=== PATIENT | female | born 1950 | race American Indian/Alaskan Native ===

== ENCOUNTER 2018-01-18 19:33 | Emergency (ER) | payer BC, MEDICARE ==
[2018-01-18 19:49] VITALS: BP 169/76
[2018-01-18 20:30] LABS: Bilirubin,Urine NEG (Negative); Blood,Urine MOD (Negative); Color,Urine Blue (Yellow); Mucus,Urine FEW /HPF; Protein,Urine <15 mg/dL mg/dL (Negative); Urobilinogen,Urine < 2.0 mg/dL (<2.0)
--- NOTE | 2018-01-18 21:51 | Emergency Department Report ---
ED Female HPI - General Chief complaint: Urogenital-Female Stated complaint: VAGINAL PAIN Time Seen by Provider: 01/18/18 20:51 Source: patient Mode of arrival: Ambulatory Limitations: No Limitations - History of Present Illness Initial comments: 67-year-old [place] female reports to the emergency room of having pelvic pain 8 out of 10 [address] she [address]. Patient states that this happens to her every time she goes on vacation and does a lot of walking and using soap in the bathrooms on vacation. Patient reports that she has been urinating a lot and the pain is not on the outside of her vaginal. But to do with the bone rubbing inside her vaginal. Patient denies any nausea vomiting no fever no chills no abdominal pain or pelvic pain. She admits to urgency frequency. She reports that she had this last in July 2017. She denies any dysuria no vaginal discharge. -: days(s) (3) Location: perineum Severity: severe Severity scale (0 -10): 8 Quality: aching Consistency: constant Worsens with: movement Are you Now?: No Associated Symptoms: denies other symptoms - Related Data Sexually active: Yes Home Medications Medication Instructions Recorded Confirmed Last Taken Lisinopril/Hydrochlorothiazide 1 tab PO QDAY 04/23/13 06/28/15 06/28/15 [Zestoretic 20-25 mg] Atenolol [Tenormin] 25 mg PO DAILY 10/28/14 06/28/15 06/28/15 Previous Rx's Medication Instructions Recorded Last Taken Type Acetaminophen/Codeine [Tylenol #3] 1 tab PO Q6H PRN #21 tab 06/25/15 06/28/15 Rx methOCARBAMOL [Robaxin TAB] 500 mg PO BID #20 tab 06/25/15 06/28/15 Rx HYDROcodone/APAP 7.5-325 [[place] 7.5 mg PO Q6HR PRN #10 oral.liqd 06/29/15 Unknown Rx 7.5-325 mg per 15 ML] Ibuprofen [Motrin 800 MG tab] 800 mg PO Q8HR PRN #30 tablet 06/29/15 Unknown Rx Nitrofurantoin Monohyd/M-Cryst 100 mg PO Q12H #14 capsule 01/18/18 Unknown Rx [Macrobid 100 mg Capsule] Allergies Allergy/AdvReac Type Severity Reaction Status Date / Time No Known Allergies Allergy Verified 10/28/14 17:17 ED Review of Systems ROS: Stated complaint: VAGINAL PAIN Other details as noted in HPI Comment: All other systems reviewed and negative ED Past Medical Hx - Past Medical History Previous Medical History?: Yes Hx Hypertension: Yes Hx Asthma: Yes - Surgical History Past Surgical History?: Yes Additional Surgical History: hysterectomy - Social History Smoking Status: Never Smoker - Medications Home Medications: Home Medications Medication Instructions Recorded Confirmed Last Taken Type Lisinopril/Hydrochlorothiazide 1 tab PO QDAY 04/23/13 06/28/15 06/28/15 History [Zestoretic 20-25 mg] Atenolol [Tenormin] 25 mg PO DAILY 10/28/14 06/28/15 06/28/15 History Acetaminophen/Codeine [Tylenol #3] 1 tab PO Q6H PRN #21 tab 06/25/15 06/28/15 Rx methOCARBAMOL [Robaxin TAB] 500 mg PO BID #20 tab 06/25/15 06/28/15 06/28/15 Rx HYDROcodone/APAP 7.5-325 [[place] 7.5 mg PO Q6HR PRN #10 oral.liqd 06/29/15 Unknown Rx 7.5-325 mg per 15 ML] Ibuprofen [Motrin 800 MG tab] 800 mg PO Q8HR PRN #30 tablet 06/29/15 Unknown Rx Nitrofurantoin Monohyd/M-Cryst 100 mg PO Q12H #14 capsule 01/18/18 Unknown Rx [Macrobid 100 mg Capsule] ED Physical Exam - General Limitations: No Limitations General appearance: alert, in no apparent distress - Head Head exam: Present: atraumatic, normocephalic - Eye Eye exam: Present: EOMI - ENT ENT exam: Present: mucous membranes moist - Respiratory Respiratory exam: Present: normal lung sounds bilaterally. Absent: respiratory distress - Cardiovascular Cardiovascular Exam: Present: regular rate, normal rhythm. Absent: systolic murmur, diastolic murmur, rubs, gallop - GI/Abdominal GI/Abdominal exam: Present: soft, normal bowel sounds. Absent: tenderness - Extremities Exam Extremities exam: Present: normal inspection - Neurological Exam Neurological exam: Present: alert, oriented X3 - Psychiatric Psychiatric exam: Present: normal affect, normal mood - Skin Skin exam: Present: warm, dry, intact, normal color. Absent: rash ED Course Vital Signs 01/18/18 01/18/18 19:41 19:58 Temperature 98.5 F 98.5 F Pulse Rate 84 89 Respiratory 18 18 Rate Blood Pressure 169/76 169/76 O2 Sat by Pulse 97 99 Oximetry ED Medical Decision Making - Medical Decision Making Patient has been evaluated by this provider fast track. Labs such as urinalysis shows a patient who has moderate moderate esterase and WBCs and moderate amount of blood. We'll treat patient for urinary tract infection and have her follow up with Dr. Shepard which she reports appointment on the . Critical care attestation.: If time is entered above; I have spent that time in minutes in the direct care of this critically ill patient, excluding procedure time. ED Disposition Clinical Impression: UTI (urinary tract infection) Qualifiers: Urinary tract infection type: acute cystitis Hematuria presence: with hematuria Qualified Code(s): N30.01 - Acute cystitis with hematuria Disposition: TO HOME OR SELFCARE Is pt being admited?: No Does the pt Need Aspirin: No Condition: Stable Instructions: Urinary Tract Infection in Women (ED) Additional Instructions: Complete antibiotics as prescribed. Increase her fluid intake by 2 L a day. Keep your appointment with her primary care provider. Prescriptions: Nitrofurantoin Monohyd/M-Cryst [Macrobid 100 mg Capsule] 100 mg PO Q12H #14 capsule Referrals: PRIMARY CAREMD [Primary Care Provider] - 3-5 Days Zoraida leger [Other] - 3-5 Days Forms: Work/School Release Form(ED)
== END 2018-01-18 22:05 | disposition home or self-care (01) ==
LOC: ED 19:33
DX: N30.01 Acute cystitis with hematuria (principal); I10 Essential (primary) hypertension; J45.909 Unspecified asthma, uncomplicated; Z90.710 Acquired absence of both cervix and uterus; Z79.899 Other long term (current) drug therapy
CPT/HCPCS: 81001; 99283

== ENCOUNTER 2019-08-04 07:58 | Observation (INO) | payer BC, MEDICARE ==
[2019-08-04] MEDS ORDERED: ASPIRIN 325 MG TAB PO ONE (08:04)
--- NOTE | 2019-08-04 08:41 | Emergency Department Report ---
ED Chest Pain HPI - General Chief Complaint: Chest Pain Stated Complaint: CHEST PAIN, ASTHMA Time Seen by Provider: 08/04/19 08:28 Source: patient Mode of arrival: Ambulatory Limitations: No Limitations - History of Present Illness Initial Comments: Patient is 69 years old female with history of hypertension and asthma. Patient presented to the ER complaining of chest pain, substernal radiated to both upper extremities and to her neck. Patient stated that pain started last night. Patient is also complaining of shortness of breath and cough. Patient denied any fever or chills. No nausea or vomiting. No lower extremity swelling. MD Complaint: chest pain -: Last night Onset: during rest Pain Location: substernal Pain Radiation: RUE, LUE Severity: moderate Severity scale (0 -10): 4 Quality: heaviness, pressure Consistency: constant - Related Data Home Medications Medication Instructions Recorded Confirmed Last Taken Albuterol Sulfate [Proair 90 mcg IH QDAY PRN 08/04/19 08/04/19 Unknown Digihaler] Amlodipine Besylate [Norvasc] 5 mg PO QDAY 08/04/19 08/04/19 Unknown Loratadine [Allergy Relief] 10 mg PO QDAY 08/04/19 08/04/19 Unknown hydroCHLOROthiazide [HCTZ] 25 mg PO QDAY 08/04/19 08/04/19 Unknown lisinopriL [Zestril TAB] 40 mg PO QDAY 08/04/19 08/04/19 Unknown Allergies Allergy/AdvReac Type Severity Reaction Status Date / Time No Known Allergies Allergy Verified 10/28/14 17:17 Heart Score - HEART Score History: Moderately suspicious EKG: Non-specific Age: > 65 Risk factors: > 3 risk factors or hx of atherosclerotic disease Troponin: < normal limit HEART Score: 6 - Critical Actions Critical Actions: 4-6 pts:12-16.6% risk of adverse cardiac event. Should be admitted ED Review of Systems ROS: Stated complaint: CHEST PAIN, ASTHMA Other details as noted in HPI Comment: All other systems reviewed and negative Constitutional: denies: chills, fever Respiratory: cough, shortness of breath, SOB with exertion, SOB at rest. denies: wheezing Cardiovascular: chest pain Gastrointestinal: denies: abdominal pain, nausea, vomiting, diarrhea, constipation, hematemesis Musculoskeletal: denies: back pain Neurological: denies: headache, weakness, numbness, paresthesias ED Past Medical Hx - Past Medical History Previous Medical History?: Yes Hx Hypertension: Yes Hx Asthma: Yes - Surgical History Past Surgical History?: Yes Additional Surgical History: hysterectomy - Social History Smoking Status: Never Smoker Substance Use Type: None - Medications Home Medications: Home Medications Medication Instructions Recorded Confirmed Last Taken Type Albuterol Sulfate [Proair 90 mcg IH QDAY PRN 08/04/19 08/04/19 Unknown History Digihaler] Amlodipine Besylate [Norvasc] 5 mg PO QDAY 08/04/19 08/04/19 Unknown History Loratadine [Allergy Relief] 10 mg PO QDAY 08/04/19 08/04/19 Unknown History hydroCHLOROthiazide [HCTZ] 25 mg PO QDAY 08/04/19 08/04/19 Unknown History lisinopriL [Zestril TAB] 40 mg PO QDAY 08/04/19 08/04/19 Unknown History ED Physical Exam - General Limitations: No Limitations General appearance: alert, in no apparent distress - Head Head exam: Present: atraumatic, normocephalic, normal inspection - Eye Eye exam: Present: normal appearance - ENT ENT exam: Present: normal exam, normal orophraynx, mucous membranes moist - Neck Neck exam: Present: normal inspection, full ROM. Absent: tenderness, m eningismus, lymphadenopathy, thyromegaly - Respiratory Respiratory exam: Present: normal lung sounds bilaterally - Cardiovascular Cardiovascular Exam: Present: regular rate, normal rhythm, normal heart sounds - GI/Abdominal GI/Abdominal exam: Present: soft, normal bowel sounds. Absent: distended, tenderness, guarding, rebound, rigid, organomegaly, mass, bruit, pulsatile mass, hernia - Extremities Exam Extremities exam: Present: normal inspection, full ROM, normal capillary refill. Absent: pedal edema, calf tenderness - Back Exam Back exam: Present: normal inspection, full ROM. Absent: CVA tenderness (R), CVA tenderness (L) - Neurological Exam Neurological exam: Present: alert, oriented X3, CN II-XII intact, normal gait, reflexes normal. Absent: motor sensory deficit - Psychiatric Psychiatric exam: Present: normal mood - Skin Skin exam: Present: warm, intact, normal color ED Course Vital Signs 08/04/19 08/04/19 08/04/19 08:02 08:40 08:42 Temperature 98.3 F 98.4 F Pulse Rate 91 H 80 Respiratory 18 16 Rate Blood Pressure 175/82 Blood Pressure 134/72 [Left] O2 Sat by Pulse 98 98 98 Oximetry ED Medical Decision Making - Lab Data Result diagrams: 08/04/19 08:34 08/04/19 08:34 - EKG Data -: EKG Interpreted by [facility] EKG shows normal: sinus rhythm Rate: normal - EKG Data Interpretation: no acute changes - Radiology Data Radiology results: report reviewed - Medical Decision Making Patient is 69 years old female with history of hypertension and asthma. Patient presented to the ER complaining of chest pain, substernal radiated to both upper extremities and to her neck. Patient stated that pain started last night. Patient is also complaining of shortness of breath and cough. Patient denied any fever or chills. No nausea or vomiting. No lower extremity swelling. EKG showed no ST elevation. Labs reviewed and is unremarkable except for slightly elevated d-dimer for which CTA chest is negative for PE. I discussed t he patient with Dr. Rivera, he agreed to admit the patient to medical service for further management. Critical care attestation.: If time is entered above; I have spent that time in minutes in the direct care of this critically ill patient, excluding procedure time. ED Disposition Clinical Impression: Chest pain Disposition: - OP ADMIT IP TO THIS HOSP Is pt being admited?: Yes Condition: Stable Instructions: Chest Pain (ED)
--- NOTE | 2019-08-04 08:52 | XRay Report ---
CHEST 1 VIEW INDICATION: Chest Pain. COMPARISON: 06/02/2015. FINDINGS: Support devices: None. Heart: Within normal limits. Lungs/Pleura: No acute air space or interstitial disease. Additional findings: None. IMPRESSION: No acute abnormality. Signer Name: Raul Cadena MD Signed: 08/04/2019 8:48 AM Workstation Name: [id number]
[2019-08-04 09:29] LABS: Basophils % (Auto) 0.9 % (0.0-1.8); Eosinophils # (Auto) 0.2 K/mm3 (0.0-0.4); Eosinophils % (Auto) 4.8 % (0.0-4.3); Hematocrit 36.8 % (30.3-42.9); Hemoglobin 12.1 gm/dl (10.1-14.3); Lymphocytes # (Auto) 1.5 K/mm3 (1.2-5.4); Mean Corpuscular HGB Conc 33 % (30-34); Mean Corpuscular Volume 81 fl (79-97); Monocytes # (Auto) 0.3 K/mm3 (0.0-0.8); Monocytes % (Auto) 6.6 % (0.0-7.3); Platelet Count 152 K/mm3 (140-440); Red Blood Count 4.52 M/mm3 (3.65-5.03); Red Cell Distribution Width 15.4 % (13.2-15.2)
[2019-08-04] MEDS ORDERED: MORPHINE 4 MG/1 ML INJ IV ONE (09:44)
[2019-08-04] MEDS ORDERED: MORPHINE 2 MG/1 ML INJ ONE (09:44)
[2019-08-04] MEDS ORDERED: ONDANSETRON 4 MG/2 ML INJ IV ONE (09:44)
[2019-08-04] MEDS ORDERED: ONDANSETRON 4 MG/2 ML INJ ONE (09:44)
[2019-08-04 09:45] LABS: BUN/Creatinine Ratio 20; Blood Urea Nitrogen 18 mg/dL (7-17); Calcium 9.4 mg/dL (8.4-10.2); Hemolysis Index 5
[2019-08-04 09:50] LABS: Alanine Aminotransferase 19 units/L (7-56); Albumin 4.7 g/dL (3.9-5)
[2019-08-04 10:12] LABS: Bilirubin,Direct < 0.2 mg/dL (0-0.2)
--- NOTE | 2019-08-04 12:11 | Cat Scan Report ---
CTA CHEST WITH CONTRAST INDICATION : CHEST PAIN WITH SOB. TECHNIQUE: Axial imaging performed through the chest, with contrast bolus timing set to maximize opa cification of the pulmonary arteries. Sagittal and coronal reformatted images. 3-plane MIP reformatte d images were obtained. All CT scans at this location are performed using CT dose reduction for ALAR A by means of automated exposure control. 100 mL of intravenous contrast administered. COMPARISON: None FINDINGS: Bolus: Contrast bolus timing is adequate. PTE: No filling defect is present to suggest PTE. Mediastinum: Heart and great vessels appear normal. No pathologic mediastinal adenopathy. 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 Lungs: Lungs are clear. Bones: Degenerative changes in the spine with nothing acute. Upper abdomen: Limited imaging of the upper abdomen shows nothing acute. IMPRESSION: Negative for PTE. Clear lungs. Signer Name: Matias Chung Jr, MD Signed: 08/04/2019 12:06 PM Workstation Name: [id number]
--- NOTE | 2019-08-04 12:42 | History and Physical Report ---
History of Present Illness Chief complaint: My chest is been hurting History of present illness: 69 YO Female with HTN, Asthma presents to ED for evaluation. Patient states that she has experienced pain in her chest over the past 1 day with worsening symptoms over the past 6 hours. Patient states that her pain is currently 46/10, intermittent initially but has become more constant over the past 6 hours, substernal, crushing in nature, worsened with exertion, relieved with rest, associated with shortness of breath. Patient acknowledges dyspnea on exertion, dyspnea at rest, decreased exercise tolerance. Patient transported to [facility] via private vehicle for further evaluation and care. Patient seen and evaluated in the emergency department. Lab and imaging studies reviewed. Patient found to have symptoms and clinical findings consistent with angina as well as diastolic congestive heart failure, and upper extremity pain consistent with cervical radiculopathy. Patient placed in observation status and admitted to [facility] unit for further evaluation and care due to increased risk of decompensation. Patient denies fever, chills, palpitations, productive cough, unilateral leg swelling, prolonged travel/immobility, individual/family history of DVT/PE/bleeding/blood clotting disorders, or recent ill contacts. No prior admission for review. All medication listed at time of admission has been reconciled. Advanced care planning conducted in ED. Past History Past Medical History: hypertension, other (See HPI) Past Surgical History: hysterectomy Social history: . denies: smoking, alcohol abuse, prescription drug abuse Family history: hypertension Medications and Allergies Allergies Allergy/AdvReac Type Severity Reaction Status Date / Time No Known Allergies Allergy Verified 10/28/14 17:17 Home Medications Medication Instructions Recorded Confirmed Last Taken Type Albuterol Sulfate [Proair 90 mcg IH QDAY PRN 08/04/19 08/04/19 Unknown History Digihaler] Amlodipine Besylate [Norvasc] 5 mg PO QDAY 08/04/19 08/04/19 Unknown History Loratadine [Allergy Relief] 10 mg PO QDAY 08/04/19 08/04/19 Unknown History hydroCHLOROthiazide [HCTZ] 25 mg PO QDAY 08/04/19 08/04/19 Unknown History lisinopriL [Zestril TAB] 40 mg PO QDAY 08/04/19 08/04/19 Unknown History Review of Systems Constitutional: no weight loss, no weight gain, no fever, no chills Ears, nose, mouth and throat: no ear pain, no ear discharge, no decreased hearing, no nose pain Breasts: no change in shape, no swelling, no mass Cardiovascular: chest pain, shortness of breath, dyspnea on exertion, decreased exercise tolerance, no rapid/irregular heart beat, no syncope, no lightheadedness Exam - Constitutional Vitals: Temp Pulse Resp BP Pulse Ox 98.4 F 80 16 134/72 98 08/04/19 08:42 08/04/19 08:42 08/04/19 08:42 08/04/19 08:42 08/04/19 08:42 Results - Labs CBC & Chem 7: 08/04/19 08:34 08/04/19 08:34 Labs: Abnormal lab results 08/04/19 08/04/19 08/04/19 Range/Units 08:34 08:34 08:39 MCH 27 L (28-32) pg RDW 15.4 H (13.2-15.2) % Eos % (Auto) 4.8 H (0.0-4.3) % D-Dimer 256.38 H (0-234) ng/mlDDU Carbon Dioxide 21 L (22-30) mmol/L BUN 18 H (7-17) mg/dL Assessment and Plan - Patient Problems (1) Diastolic CHF Current Visit: Yes Status: Acute Qualifiers: Heart failure chronicity: acute Qualified Code(s): I50.31 - Acute diastolic (congestive) heart failure Plan to address problem: Strict I's/O, daily weight, blood pressure control, monitor urine output every shift, pulse oximetry, remote telemetry monitoring, echocardiogram, cardiology team consulted in ED. (2) Angina at rest Current Visit: Yes Status: Acute Plan to address problem: Serial cardiac enzymes, EKG, supplemental oxygen, morphine, nitro, aspirin, repeat physical exam, cardiology consulted in ED, further testing as per cardiology team.. (3) Radiculopathy Current Visit: Yes Status: Acute Plan to address problem: Cervical spine x-ray, supportive care. (4) DVT prophylaxis Current Visit: Yes Status: Acute Plan to address problem: SCD to bilateral lower extremities while in bed, patient is ambulatory. (5) Advance care planning Current Visit: Yes Status: Acute Plan to address problem: Patient is full code, disease education conducted at bedside, patient acknowledges understanding and agreement with care plan. Patient wishes to proceed with care plan. +30 minutes
[2019-08-04] MEDS ORDERED: ONDANSETRON 4 MG/2 ML INJ IV PRN (12:44)
[2019-08-04] MEDS ORDERED: ACETAMINOPHEN 325 MG TAB PO PRN (12:44)
[2019-08-04 13:59] LABS: Chol/HDL Ratio 2.89 %
--- NOTE | 2019-08-04 16:47 | XRay Report ---
CERVICAL SPINE, 6 VIEWS INDICATION / CLINICAL INFORMATION: Radiculopathy. COMPARISON: 08/09/2012 FINDINGS: Mild multilevel degenerative disc disease is present. Posterior alignment is normal. Mild to moderate diffuse spondylitic changes noted throughout the spine. Overall appearance of the diffuse spondylyti c change is slightly worse compared to the 2013 exam. No evidence of compression fracture. Visualized lung apices are clear. IMPRESSION: 1. Mild multilevel degenerative disc disease with mild to moderate diffuse spondylytic change. The de gree of spondylitic change has progressed since prior radiographs of 08/09/2012. 2. No other significant finding. Signer Name: Jasmyne Carlin MD Signed: 08/04/2019 4:43 PM Workstation Name: [id number]
[2019-08-05] MEDS ORDERED: REGADENOSON 0.4 MG/5 ML INJ IV ONE ×2 (09:45→09:50)
[2019-08-05] MEDS ORDERED: hydroCHLOROthiazide 25 MG TAB PO SCH (10:00)
[2019-08-05] MEDS ORDERED: NON-FORMULARY EACH (Loratadine [Allergy Relief] 10 MG) PO SCH (10:00)
[2019-08-05] MEDS ORDERED: LISINOPRIL 40 MG TAB PO SCH (10:00)
[2019-08-05] MEDS ORDERED: amLODIPine 5 MG TAB PO SCH (10:00)
[2019-08-05] MEDS ORDERED: CETIRIZINE 10 MG TAB PO SCH (10:00)
--- NOTE | 2019-08-05 10:35 | Consultation ---
History of Present Illness Consult date: 08/05/19 Consult reason: chest pain, congestive heart failure History of present illness: 69-year old woman who presented to the emergency department with complaints of chest pain. Patient associates chest pain with shortness of breath and right upper extremity pain. Noted a systolic blood pressure of 175 on initial workup. There is no history of coronary artery disease and she had no recent cardiac evaluation. A chest xray is negative and a chest CTA scan reports no PE. Cycled iso-enzymes are normal and her ECG is benign, normal sinus rhythm. Cardiac consultation has been requested for further evaluation and recommendations. Past History Past Medical History: hypertension, other (See HPI) Past Surgical History: hysterectomy Social history: . denies: smoking, alcohol abuse, prescription drug abuse Family history: hypertension Medications and Allergies Allergies Allergy/AdvReac Type Severity Reaction Status Date / Time No Known Allergies Allergy Verified 10/28/14 17:17 Home Medications Medication Instructions Recorded Confirmed Last Taken Type Albuterol Sulfate [Proair 90 mcg IH QDAY PRN 08/04/19 08/04/19 Unknown History Digihaler] Amlodipine Besylate [Norvasc] 5 mg PO QDAY 08/04/19 08/04/19 Unknown History Loratadine [Allergy Relief] 10 mg PO QDAY 08/04/19 08/04/19 Unknown History hydroCHLOROthiazide [HCTZ] 25 mg PO QDAY 08/04/19 08/04/19 Unknown History lisinopriL [Zestril TAB] 40 mg PO QDAY 08/04/19 08/04/19 Unknown History Active Meds: Active Medications Acetaminophen (Tylenol) 650 mg PO Q4H PRN PRN Reason: Pain MILD(1-3)/Fever >100.5/LEW Amlodipine Besylate (Amlodipine) 5 mg PO QDAY [facility] Last Admin: 08/05/19 08:59 Dose: Not Given Documented by: Cetirizine HCl (Cetirizine) 10 mg PO DAILY [facility] Last Admin: 08/05/19 08:59 Dose: 10 mg Documented by: Hydrochlorothiazide (Hctz) 25 mg PO QDAY [facility] Last Admin: 08/05/19 08:59 Dose: Not Given Documented by: Lisinopril (Zestril) 40 mg PO QDAY [facility] Last Admin: 08/05/19 08:59 Dose: Not Given Documented by: Ondansetron HCl (Zofran) 4 mg IV Q8H PRN PRN Reason: Nausea And Vomiting Sodium Chloride (Sodium Chloride Flush Syringe 10 Ml) 10 ml IV BID ALEX Last Admin: 08/05/19 09:00 Dose: 10 ml Documented by: Sodium Chloride (Sodium Chloride Flush Syringe 10 Ml) 10 ml IV PRN PRN PRN Reason: LINE FLUSH Physical Examination Vital Signs Temp Pulse Resp BP Pulse Ox 98.3 F 91 H 18 175/82 98 08/04/19 08:02 08/04/19 08:02 08/04/19 08:02 08/04/19 08:02 08/04/19 08:02 General appearance: no acute distress HEENT: Positive: PERRL Neck: Positive: trachea midline Cardiac: Positive: Reg Rate and Rhythm Lungs: Positive: Decreased Breath Sounds Results 08/04/19 08:34 08/04/19 08:34 Lipids 08/04/19 Range/Units 12:50 Triglycerides 70 (2-149) mg/dL Cholesterol 168 (50-199) mg/dL HDL Cholesterol 58 (40-59) mg/dL Cholesterol/HDL Ratio 2.89 % Assessment and Plan - Patient Problems (1) Chest pain Current Visit: Yes Status: Acute Plan to address problem: Chest pain negative troponins ECG- NSR chest CTA -no PE Plan: We will obtain an echocardiogram for LVEF assessment. Pre-discharge stress thallium test for ischemic cardiac evaluation.
--- NOTE | 2019-08-05 19:16 | Discharge Summary ---
Providers - Providers Date of Admission: 08/04/19 12:44 Date of discharge: 08/05/19 Attending physician: NATHAN ORDAZ 08/04/19 Consult to Cardiac Rehabilitation [CONS] Routine Reason For Exam: Phase I 08/04/19 12:45 Consult to Cardiology [CONS] Routine Consulting Provider: AUGUST CORDOBA Reason For Exam: chf/angina Primary care physician: TIN HUGGINS Hospitalization Condition: Stable Pertinent studies: Echocardiogram ejection fraction 60%. Negative stress thallium exam. X-ray of neck showed cervical osteophytes that has been worse since 2013. Hospital course: Patient 69-year-old without any significant past medical history presents with a chief complaint of chest pain association of shortness of breath and uncontrolled hypertension. Patient had extensive work-up cardiac isoenzymes negative. EKG unremarkable. Patient had normal stress test unremarkable echocardiogram was thought to be stable cardiology to be followed outpatient. Patient follow-up Ortho outpatient cervical neck pain secondary to degenerative joint disease. Disposition: - TO HOME OR SELFCARE - Discharge Diagnoses (1) Chest pain Status: Acute Comment: Thought to be secondary to gastritis versus costochondritis. Atypical chest pain. Work-up negative. (2) Radiculopathy Status: Acute Comment: Secondary to degenerative joint disease. Patient continue tramadol. PRN Celebrex. Core Measure Documentation - Palliative Care Palliative Care/ Comfort Measures: Not Applicable - Core Measures Any of the following diagnoses?: none Exam - Constitutional Vitals: Temp Pulse Resp BP Pulse Ox 98.6 F 88 18 126/55 90 08/05/19 13:33 08/05/19 13:33 08/05/19 13:33 08/05/19 13:33 08/05/19 13:33 General appearance: Present: no acute distress, well-nourished - EENT Eyes: Present: PERRL ENT: hearing intact, clear oral mucosa - Neck Neck: Present: supple, normal ROM - Respiratory Respiratory effort: normal Respiratory: bilateral: CTA - Cardiovascular Heart Sounds: Present: S1 & S2. Absent: rub, click - Extremities Extremities: pulses symmetrical, No edema Peripheral Pulses: within normal limits - Abdominal General gastrointestinal: Present: soft, non-tender, non-distended, normal bowel sounds Female genitourinary: Present: normal - Integumentary Integumentary: Present: clear, warm, dry - Musculoskeletal Musculoskeletal: gait normal, strength equal bilaterally - Psychiatric Psychiatric: appropriate mood/affect, intact judgment & insight - Neurologic Neurologic: CNII-XII intact, moves all extremities Plan Activity: no restrictions Weight Bearing Status: Full Weight Bearing Diet: low fat, low salt Follow up with: MARIAM [facility]WE[facility]ER[facility] MD ELEN [Referring] - 3-5 Days Prescriptions: Amlodipine Besylate [Norvasc] 5 mg PO QDAY #30 lisinopriL [Zestril TAB] 40 mg PO QDAY #30
[2019-08-05 20:16] VITALS: BP 119/58
== END 2019-08-05 21:35 | disposition home or self-care (01) ==
LOC: ED 07:58 → 2B-ACE 12:44
PROVIDERS: ADMIT Internal Medicine; ATTEND Internal Medicine
DX: I11.0 Hypertensive heart disease with heart failure (principal); I50.31 Acute diastolic (congestive) heart failure; I20.8 Other forms of angina pectoris; M54.10 Radiculopathy, site unspecified; J45.909 Unspecified asthma, uncomplicated; Z90.710 Acquired absence of both cervix and uterus
CPT/HCPCS: 36415; 71045; 71275; 72040; 78452; 80048; 80061; 80076; 83735; 83880; 84439; 84443; 84484; 85025; 85379; 93005; 93010; 93017; 93306; 96374; 96375; 99285; A9502; G0378; J2270; J2405; J2785; Q9967

== ENCOUNTER 2020-01-06 13:31 | Emergency (ER) | payer MEDICARE ==
--- NOTE | 2020-01-06 14:24 | Event Note ---
ED Screening Note Date of service: 01/06/20 Time: 14:23 ED Screening Note: Patient presents with complaints of bilateral neck pain, worse on right and headache x2 weeks States unrelieved with OTC meds Denies any head injuries, neck injuries, chest pain, or shortness of breath Patient also denies any fever No tenderness to palpation noted over cervical vertebrae on exam This initial assessment/diagnostic orders/clinical plan/treatment(s) is/are subject to change based on patients health status, clinical progression and re- assessment by fellow clinical providers in the ED. Further treatment and workup at subsequent clinical providers discretion. Patient/guardian urged not to elope from the ED as their condition may be serious if not clinically assessed and managed. Initial orders include: EKG Labs
[2020-01-06 15:22] LABS: Basophils # (Auto) 0.1 K/mm3 (0.0-0.1); Basophils % (Auto) 0.9 % (0.0-1.8); Eosinophils # (Auto) 0.4 K/mm3 (0.0-0.4); Eosinophils % (Auto) 5.6 % (0.0-4.3); Hematocrit 37.2 % (30.3-42.9); Hemoglobin 12.4 gm/dl (10.1-14.3); Lymphocytes # (Auto) 1.9 K/mm3 (1.2-5.4); Lymphocytes % (Auto) 30.2 % (13.4-35.0); Mean Corpuscular HGB Conc 33 % (30-34); Mean Corpuscular Volume 82 fl (79-97); Monocytes # (Auto) 0.4 K/mm3 (0.0-0.8); Monocytes % (Auto) 6.2 % (0.0-7.3); Platelet Count 183 K/mm3 (140-440); Red Blood Count 4.56 M/mm3 (3.65-5.03); Red Cell Distribution Width 15.5 % (13.2-15.2)
[2020-01-06 15:42] LABS: Alanine Aminotransferase 10 units/L (7-56); Albumin 4.4 g/dL (3.9-5); BUN/Creatinine Ratio 18; Blood Urea Nitrogen 20 mg/dL (7-17); Calcium 9.9 mg/dL (8.4-10.2); Hemolysis Index 1
[2020-01-06] MEDS ORDERED: KETOROLAC 30 MG/1 ML INJ IV ONE (20:15)
[2020-01-06] MEDS ORDERED: BUTALB/ACETAMINOPHEN/CAFFEINE TAB PO ONE (20:15)
[2020-01-06] MEDS ORDERED: dexAMETHasone 20 MG/5 ML VIAL IV ONE (20:15)
[2020-01-06] MEDS ORDERED: SODIUM CHLORIDE 0.9% 1000 ML 1,000 ML IV ONE (20:16)
--- NOTE | 2020-01-06 20:52 | Emergency Department Report ---
ED General Adult HPI - General Chief complaint: Neck Pain/Injury Stated complaint: NECK PAIN Time Seen by Provider: 01/06/20 14:16 Source: patient Mode of arrival: Ambulatory Limitations: No Limitations - History of Present Illness Initial comments: Patient is a 69-year-old -[place] female with history of hypertension and asthma who presents to the ED with complaint of acute onset persistent nontraumatic neck pain, bilateral lateral shoulder pain and headache for the last 2 weeks. Patient states that she has been taking [id number] med ications with no relief including prescription Flexeril. Patient states that the pain radiates from the shoulders to her neck and to her jaws and resulting in persistent headache. Patient also states that the pain radiates distally to her hands and fingers with tingling and numbness sensations bilaterally. Patient denies traumatic injury, chest pain, shortness of breath, heavy lifting, fall, back pain, nausea and vomiting, diaphoresis, change in vision, cough, abdominal pain, syncope, seizures or palpitations. MD Complaint: Neck pain; bilateral lateral shoulder pain; headache -: Sudden, week(s) (2) Location: head, neck, upper extremity (bilateral lateral shoulder pain) Radiation: neck, extremity (Bilateral lateral shoulder pain) Severity scale (0 -10): 8 Quality: aching, sharp, constant Consistency: constant Improves with: none Worsens with: movement Associated Symptoms: denies other symptoms, headaches. denies: confusion, chest pain, cough, diaphoresis, fever/chills, loss of appetite, malaise, nausea/vomiting, rash, seizure, shortness of breath, syncope, weakness Treatments Prior to Arrival: none - Related Data Home Medications Medication Instructions Recorded Confirmed Last Taken Albuterol Sulfate [Proair 90 mcg IH QDAY PRN 08/04/19 08/04/19 Unknown Digihaler] Loratadine [Allergy Relief] 10 mg PO QDAY 08/04/19 08/04/19 Unknown hydroCHLOROthiazide [HCTZ] 25 mg PO QDAY 08/04/19 08/04/19 Unknown Previous Rx's Medication Instructions Recorded Last Taken Type Acetaminophen [Acetaminophen TAB] 650 mg PO Q4H PRN tablet 08/05/19 Unknown Rx Amlodipine Besylate [Norvasc] 5 mg PO QDAY #30 08/05/19 Unknown Rx lisinopriL [Zestril TAB] 40 mg PO QDAY #30 08/05/19 Unknown Rx Butalb/Acetamin/Caff 50-325-40 1 - 2 tab PO Q6HR PRN #12 tab 01/06/20 Unknown Rx [Fioricet 50-325-40] Gabapentin 300 mg PO QHS PRN #30 cap 01/06/20 Unknown Rx Naproxen 500 mg PO Q12H PRN #30 tablet 01/06/20 Unknown Rx predniSONE [Deltasone] 60 mg PO QDAY #15 tab 01/06/20 Unknown Rx Allergies Allergy/AdvReac Type Severity Reaction Status Date / Time No Known Allergies Allergy Verified 01/06/20 13:32 ED Review of Systems ROS: Stated complaint: NECK PAIN Other details as noted in HPI Constitutional: denies: chills, fever Eyes: denies: eye pain, eye discharge, vision change ENT: denies: ear pain, throat pain Respiratory: denies: cough, shortness of breath, wheezing Cardiovascular: denies: chest pain, palpitations Endocrine: no symptoms reported Gastrointestinal: denies: abdominal pain, nausea, diarrhea Genitourinary: denies: urgency, dysuria, discharge Musculoskeletal: arthralgia (bilateral shoulder pain; neck pain), myalgia. denies: back pain, joint swelling Skin: denies: rash, lesions Neurological: headache. denies: weakness, paresthesias Psychiatric: denies: anxiety, depression Hematological/Lymphatic: denies: easy bleeding, easy bruising ED Past Medical Hx - Past Medical History Hx Hypertension: Yes Hx Asthma: Yes Hx HIV: No - Surgical History Additional Surgical History: hysterectomy - Social History Smoking Status: Never Smoker Substance Use Type: None - Medications Home Medications: Home Medications Medication Instructions Recorded Confirmed Last Taken Type Albuterol Sulfate [Proair 90 mcg IH QDAY PRN 08/04/19 08/04/19 Unknown History Digihaler] Loratadine [Allergy Relief] 10 mg PO QDAY 08/04/19 08/04/19 Unknown History hydroCHLOROthiazide [HCTZ] 25 mg PO QDAY 08/04/19 08/04/19 Unknown History Acetaminophen [Acetaminophen TAB] 650 mg PO Q4H PRN tablet 08/05/19 Unknown Rx Amlodipine Besylate [Norvasc] 5 mg PO QDAY #30 08/05/19 Unknown Rx lisinopriL [Zestril TAB] 40 mg PO QDAY #30 08/05/19 Unknown Rx Butalb/Acetamin/Caff 50-325-40 1 - 2 tab PO Q6HR PRN #12 tab 01/06/20 Unknown Rx [Fioricet 50-325-40] Gabapentin 300 mg PO QHS PRN #30 cap 01/06/20 Unknown Rx Naproxen 500 mg PO Q12H PRN #30 tablet 01/06/20 Unknown Rx predniSONE [Deltasone] 60 mg PO QDAY #15 tab 01/06/20 Unknown Rx ED Physical Exam - General Limitations: No Limitations General appearance: alert, in no apparent distress - Head Head exam: Present: atraumatic, normocephalic, normal inspection - Eye Eye exam: Present: normal appearance, PERRL, EOMI Pupils: Present: normal accommodation - ENT ENT exam: Present: normal exam, normal orophraynx, mucous membranes moist, TM's normal bilaterally, normal external ear exam - Neck Neck exam: Present: normal inspection, tenderness (Palpable cervical paraspinal musculoskeletal tenderness), full ROM - Respiratory Respiratory exam: Present: normal lung sounds bilaterally. Absent: respiratory distress, wheezes, rales, rhonchi, stridor, chest wall tenderness, accessory muscle use - Cardiovascular Cardiovascular Exam: Present: regular rate, normal rhythm, normal heart sounds. Absent: systolic murmur, diastolic murmur, rubs, gallop - GI/Abdominal GI/Abdominal exam: Present: soft, normal bowel sounds. Absent: tenderness, guarding, rebound, hyperactive bowel sounds, hypoactive bowel sounds, organomegaly, mass - Extremities Exam Extremities exam: Present: normal inspection, full ROM, tenderness (Bilateral lateral sternocleidomastoid muscle tenderness; Bilateral shoulder tenderness), normal capillary refill. Absent: pedal edema, joint swelling, calf tenderness - Back Exam Back exam: Present: normal inspection, full ROM. Absent: tenderness, CVA tenderness (R), CVA tenderness (L), muscle spasm, paraspinal tenderness, vertebral tenderness - Neurological Exam Neurological exam: Present: alert, oriented X3, CN II-XII intact, normal gait, reflexes normal - Psychiatric Psychiatric exam: Present: normal affect, normal mood - Skin Skin exam: Present: warm, dry, intact, normal color. Absent: rash ED Course Vital Signs 01/06/20 01/06/20 13:36 21:12 Temperature 98 F Pulse Rate 69 58 L Respiratory 20 16 Rate Blood Pressure 121/55 Blood Pressure 121/79 [Right] O2 Sat by Pulse 100 100 Oximetry ED Medical Decision Making - Lab Data Result diagrams: 01/06/20 14:55 01/06/20 14:55 - Medical Decision Making This is a 69-year-old -[place] female with history of hypertension and asthma who presents to the ED with complaint of acute onset persistent nontraumatic neck pain, bilateral lateral shoulder pain and headache for the last 2 weeks. Patient states that she has been taking [id number] medications with no relief including prescription Flexeril. Patient states that the pain radiates from the shoulders to her neck and to her jaws and resulting in persistent headache. Patient also states that the pain radiates distally to her hands and fingers with tingling and numbness sensations bilaterally. In the ED, patient is alert and oriented x3 and is not in any distress but appears to be in pain. Patient was treated for pain in the ED. Patient also received normal saline 1 L IV bolus. Lab test results were reviewed and are all nonactionable including the initial and repeat troponin levels. The EKG shows normal sinus rhythm with a ventricular rate of [address] or T wave abnormalities. On reevaluation, patient's pain is is well controlled with medications. Patient was discharged home on medications and advised to follow- up with her primary care physician in 5 to 7 days for reevaluation. Patient was also advised to return to the ED immediately if symptoms get worse. - Differential Diagnosis cervical radiculopathy; Muscle strain; tension headache; CAD Critical care attestation.: If time is entered above; I have spent that time in minutes in the direct care of this critically ill patient, excluding procedure time. ED Disposition Clinical Impression: Acute cervical radiculopathy, Sternocleidomastoid muscle tenderness, Cervical paraspinous muscle spasm Disposition: -01 TO HOME OR SELFCARE Is pt being admited?: No Does the pt Need Aspirin: No Condition: Stable Instructions: Muscle Strain (ED), Cervical Sprain (ED), Cervical Radiculopathy (ED), Acute Headache (ED) Additional Instructions: Take medication with food, drink plenty of fluids and follow-up with your primary care physician in 5 to 7 days for reevaluation. Return to the ED immediately if symptoms get worse. Prescriptions: Gabapentin 300 mg PO QHS PRN #30 cap PRN Reason: Pain , Severe (7-10) predniSONE [Deltasone] 60 mg PO QDAY #15 tab Butalb/Acetamin/Caff 50-325-40 [Fioricet 50-325-40] 1 - 2 tab PO Q6HR PRN #12 tab PRN Reason: Headache Naproxen 500 mg PO Q12H PRN #30 tablet PRN Reason: Pain , Severe (7-10) Referrals: YANIRA HUGGINS [Primary Care Provider] - 7-10 days Time of Disposition: 21:04 Print Language: POLISH
[2020-01-06 22:24] VITALS: BP 124/83
== END 2020-01-06 22:24 | disposition home or self-care (01) ==
LOC: ED 13:31
DX: M54.12 Radiculopathy, cervical region (principal); M62.838 Other muscle spasm; I10 Essential (primary) hypertension; J45.909 Unspecified asthma, uncomplicated; Z90.710 Acquired absence of both cervix and uterus; Z79.899 Other long term (current) drug therapy
CPT/HCPCS: 36415; 80053; 84484; 85025; 85652; 93005; 96361; 96374; 96375; 99283; J1100; J1885; J7030

== ENCOUNTER 2020-12-21 11:11 | Emergency (ER) | payer MEDICARE ==
--- NOTE | 2020-12-21 13:35 | Emergency Department Report ---
ED General Adult HPI - General Chief complaint: Sore Throat Stated complaint: THROAT PAIN Time Seen by Provider: 12/21/20 13:31 Source: patient Mode of arrival: Ambulatory Limitations: No Limitations - History of Present Illness Initial comments: 70-year-old female patient with history of asthma presents to the emergency department with complaints of sore throat, cough, and nasal congestion for 1 week. Pain is worse with swallowing. No known sick contacts. No current steroid or antibiotic use. No recent travel. Patient has been using her inhaler with limited relief. Patient does not use tobacco. Denies fever, chills, headache, neck stiffness, hoarseness, wheezing, hemoptysis. Denies all other complaints at this time. - Related Data Home Medications Medication Instructions Recorded Confirmed Last Taken Albuterol Sulfate [Proair 90 mcg IH QDAY PRN 08/04/19 08/04/19 Unknown Digihaler] Loratadine [Allergy Relief] 10 mg PO QDAY 08/04/19 08/04/19 Unknown hydroCHLOROthiazide [HCTZ] 25 mg PO QDAY 08/04/19 08/04/19 Unknown Previous Rx's Medication Instructions Recorded Last Taken Type Acetaminophen [Acetaminophen TAB] 650 mg PO Q4H PRN tablet 08/05/19 Unknown Rx Amlodipine Besylate [Norvasc] 5 mg PO QDAY #30 08/05/19 Unknown Rx lisinopriL [Zestril TAB] 40 mg PO QDAY #30 08/05/19 Unknown Rx Butalb/Acetamin/Caff 50-325-40 1 - 2 tab PO Q6HR PRN #12 tab 01/06/20 Unknown Rx [Fioricet 50-325-40] Gabapentin 300 mg PO QHS PRN #30 cap 01/06/20 Unknown Rx Naproxen 500 mg PO Q12H PRN #30 tablet 01/06/20 Unknown Rx predniSONE [Deltasone] 60 mg PO QDAY #15 tab 01/06/20 Unknown Rx guaiFENesin ER [Mucinex ER] 1,200 mg PO Q12H 5 Days tablet.er 12/21/20 Unknown Rx Allergies Allergy/AdvReac Type Severity Reaction Status Date / Time No Known Allergies Allergy Verified 12/21/20 12:04 ED Review of Systems ROS: Stated complaint: THROAT PAIN Other details as noted in HPI Other: GENERAL: Negative for fever. ENT: Positive for sore throat and nasal congestion. CARDIOVASCULAR: Negative for chest pain. PULMONARY: Positive for cough. GASTROINTESTINAL: Negative for abdominal pain. MUSCULOSKELETAL: Negative for back pain. NEUROLOGICAL: Negative for headache. INTEGUMENTARY: Negative for rash. ED Past Medical Hx - Past Medical History Hx Hypertension: Yes Hx Asthma: Yes Hx HIV: No - Surgical History Additional Surgical History: hysterectomy - Social History Smoking Status: Never Smoker Substance Use Type: None - Medications Home Medications: Home Medications Medication Instructions Recorded Confirmed Last Taken Type Albuterol Sulfate [Proair 90 mcg IH QDAY PRN 08/04/19 08/04/19 Unknown History Digihaler] Loratadine [Allergy Relief] 10 mg PO QDAY 08/04/19 08/04/19 Unknown History hydroCHLOROthiazide [HCTZ] 25 mg PO QDAY 08/04/19 08/04/19 Unknown History Acetaminophen [Acetaminophen TAB] 650 mg PO Q4H PRN tablet 08/05/19 Unknown Rx Amlodipine Besylate [Norvasc] 5 mg PO QDAY #30 08/05/19 Unknown Rx lisinopriL [Zestril TAB] 40 mg PO QDAY #30 08/05/19 Unknown Rx Butalb/Acetamin/Caff 50-325-40 1 - 2 tab PO Q6HR PRN #12 tab 01/06/20 Unknown Rx [Fioricet 50-325-40] Gabapentin 300 mg PO QHS PRN #30 cap 01/06/20 Unknown Rx Naproxen 500 mg PO Q12H PRN #30 tablet 01/06/20 Unknown Rx predniSONE [Deltasone] 60 mg PO QDAY #15 tab 01/06/20 Unknown Rx guaiFENesin ER [Mucinex ER] 1,200 mg PO Q12H 5 Days tablet.er 12/21/20 Unknown Rx ED Physical Exam - General Limitations: No Limitations - Other Other exam information: General: Awake and alert. No acute distress. Head: Atraumatic, normocephalic. Eyes: EOMI. Pupils are equal and round. Normal sclera and conjunctiva. ENT: Oral mucosa is moist. Normal pharyngeal exam. No hoarseness. Normal otoscopic exam. Neck: Supple. No lymphadenopathy. Pulmonary: No respiratory distress. Clear to auscultation bilaterally. Cardiac: Regular rate and rhythm. Pulses are palpable and equal bilaterally. No lower extremity cyanosis or edema. Skin: Warm and dry. No rashes. Abdomen: Soft, non-tender, non-protuberant. No guarding, rigidity, or rebound. Bowel sounds are normal. No organomegaly or masses noted. Back: Normal alignment. No CVA tenderness. Extremities: Symmetrical. Full range of motion intact. Neurological: Alert and oriented, appropriately interactive, no focal deficits. Psych: Cooperative. Appropriate mood and affect. Speech is evenly metered. Thoughts are logically construed. ED Course Vital Signs 12/21/20 12:06 Temperature 98.6 F Pulse Rate 67 Respiratory 16 Rate Blood Pressure 136/63 O2 Sat by Pulse 100 Oximetry ED Medical Decision Making - Medical Decision Making Differential diagnosis including but not limited to: strep pharyngitis, viral pharyngitis, peritonsillar abscess, epiglottitis, Kam's angina, mononucleosis, otitis media, allergic rhinitis Patient presents to the emergency department with complaints of sore throat, nasal congestion, and productive cough. She is afebrile. Vital signs are stable. Airway is patent. No hypoxia, no respiratory distress. Pharyngeal exam is unremarkable. No clinical evidence to suggest airway obstruction or bacterial infection warranting further diagnostic work-up on an emergent basis at this time. Patient will be discharged home with appropriate symptomatic treatment and referred to primary care provider for close outpatient follow-up. Patient expressed understanding and is agreeable to plan of care. Disease transmission precautions discussed. Strict return precautions provided. Repeat exam is unremarkable and benign. History, exam, diagnostic testing, and current condition do not suggest worrisome pathology to warrant further testing, continued ED treatment, admission, or surgical evaluation at this point. Given the low probability of a significant medical illness, it would be more likely to result in harm than benefit to perform further testing at this stage. Discussed findings, presumptive diagnosis, need for follow-up and specific signs/symptoms that should prompt immediate return to the emergency department. Instructions were explained in detail to the patient in addition to giving written discharge information. Patient expressed understanding and was given the opportunity to ask questions, all of which were satisfactorily answered prior to discharge home. Critical care attestation.: If time is entered above; I have spent that time in minutes in the direct care of this critically ill patient, excluding procedure time. ED Disposition Clinical Impression: Nasopharyngitis Disposition: DC-01 TO HOME OR SELFCARE Is pt being admited?: No Does the pt Need Aspirin: No Condition: Stable Instructions: Sore Throat, [id number] Additional Instructions: Take Tylenol every 4 hours and Motrin every 8 hours as needed for pain. Use salt water gargles and Cepacol lozenges as needed for sore throat. Take Mucinex as directed for cough/congestion. Rest. Drink plenty of fluids. Wash hands frequently to prevent disease transmission. Do not share food or drinks with others. Follow-up with your primary care provider this week. Call today to schedule an appointment. Return to the emergency department immediately for new or worsening symptoms. Specifically, return to the emergency department immediately for fever, difficulty breathing, hoarseness, wheezing, inability to swallow, or any other concerns. Prescriptions: guaiFENesin ER [Mucinex ER] 1,200 mg PO Q12H 5 Days tablet.er Referrals: [facility] [Provider Group] - 3-5 Days Time of Disposition: 13:37
== END 2020-12-21 14:27 | disposition home or self-care (01) ==
LOC: ED 11:11
CPT/HCPCS: 99282

== ENCOUNTER 2021-09-08 11:18 | Emergency (ER) | payer MEDICARE ==
[2021-09-08] MEDS ORDERED: SODIUM CHLORIDE 0.9% 1000 ML 1,000 ML IV ONE (12:50)
[2021-09-08] MEDS ORDERED: MECLIZINE 25 MG TAB PO ONE (12:50)
[2021-09-08] MEDS ORDERED: ONDANSETRON 4 MG/2 ML INJ IV ONE (12:51)
--- NOTE | 2021-09-08 12:55 | Emergency Department Report ---
HPI - General Chief Complaint: Dizziness Time Seen by Provider: 09/08/21 12:15 - HPI HPI: Since yesterday at 8 PM the patient has been experiencing generalized weakness and malaise associated with moderate vertigo and lightheadedness. The patient has had associated nausea but no vomiting fever chills focal weakness headache or any other associated symptoms. She has not taken any medications for this. Moving her head makes it worse and resting makes it better ED Past Medical Hx - Past Medical History Previous Medical History?: Yes Hx Hypertension: Yes Hx Asthma: Yes Hx HIV: No - Surgical History Past Surgical History?: Yes Additional Surgical History: hysterectomy - Social History Smoking Status: Never Smoker Substance Use Type: Prescribed - Medications Home Medications: Home Medications Medication Instructions Recorded Confirmed Last Taken Type Albuterol Sulfate [Proair 90 mcg IH QDAY PRN 08/04/19 08/04/19 Unknown History Digihaler] Loratadine [Allergy Relief] 10 mg PO QDAY 08/04/19 08/04/19 Unknown History hydroCHLOROthiazide [HCTZ] 25 mg PO QDAY 08/04/19 08/04/19 Unknown History Acetaminophen [Acetaminophen TAB] 650 mg PO Q4H PRN tablet 08/05/19 Unknown Rx Amlodipine Besylate [Norvasc] 5 mg PO QDAY #30 08/05/19 Unknown Rx lisinopriL [Zestril TAB] 40 mg PO QDAY #30 08/05/19 Unknown Rx Butalb/Acetamin/Caff 50-325-40 1 - 2 tab PO Q6HR PRN #12 tab 01/06/20 Unknown Rx [Fioricet 50-325-40] Gabapentin 300 mg PO QHS PRN #30 cap 01/06/20 Unknown Rx Naproxen 500 mg PO Q12H PRN #30 tablet 01/06/20 Unknown Rx predniSONE [Deltasone] 60 mg PO QDAY #15 tab 01/06/20 Unknown Rx guaiFENesin ER [Mucinex ER] 1,200 mg PO Q12H 5 Days tablet.er 12/21/20 Unknown Rx Meclizine [Antivert] 25 mg PO TID PRN #20 09/08/21 Unknown Rx Ondansetron [Zofran Odt] 4 mg PO Q8HR #12 tab.rapdis 09/08/21 Unknown Rx ED Review of Systems ROS: Stated complaint: DIZZINESS/WEAK Other details as noted in HPI Comment: All other systems reviewed and negative Physical Exam - Physical Exam Vital Signs: Vital Signs 09/08/21 11:33 Temperature 97.4 F L Pulse Rate 72 Respiratory 18 Rate Blood Pressure 159/97 O2 Sat by Pulse 100 Oximetry Physical Exam: Physical Exam Constitutional: General: No acute distress. Appearance: No diaphoresis. HENT: Head: Normocephalic. Eyes: Pupils: Pupils are equal, round, and reactive to light. Neck: Musculoskeletal: Normal range of motion. Cardiovascular: Rate and Rhythm: Normal rate and regular rhythm. Pulses: Intact distal pulses. Heart sounds: Normal heart sounds. No murmur. Pulmonary: Effort: No respiratory distress. Breath sounds: No wheezing or rales. Chest: Chest wall: No tenderness. Abdominal: General: There is no distension. Palpations: There is no mass. Tenderness: There is no abdominal tenderness. There is no guarding or rebound. Musculoskeletal: Normal range of motion. Skin: General: Skin is warm and dry. Neurological: Mental Status: Alert and oriented to person, place, and time. The patient had an abnormal head impulse test with no direction changing nystagmus and no vertical strabismus nor malalignment. Psychiatric: Mood and Affect: Mood and affect normal. Cognition and Memory: Memory normal. Judgment: Judgment normal. ED Course Vital Signs 09/08/21 11:33 Temperature 97.4 F L Pulse Rate 72 Respiratory 18 Rate Blood Pressure 159/97 O2 Sat by Pulse 100 Oximetry - Reevaluation(s) Reevaluation #1: 09/08/21 14:04 EKG done at 1324 shows a rate of 68, normal. The rhythm was sinus rhythm, normal. There are no ST or T wave normalized. On reevaluation the patient is feeling better. She has benign vertigo. I will place her on meclizine and Zofran she will return if any other issues arise or follow-up with her PCP as needed. ED Medical Decision Making - Lab Data Result diagrams: 09/08/21 12:42 09/08/21 12:42 Critical care attestation.: If time is entered above; I have spent that time in minutes in the direct care of this critically ill patient, excluding procedure time. ED Disposition Clinical Impression: Vertigo Disposition: 01 HOME / SELF CARE / HOMELESS Is pt being admited?: No Does the pt Need Aspirin: No Condition: Stable Instructions: Dizziness, [id number] Prescriptions: Meclizine [Antivert] 25 mg PO TID PRN #20 PRN Reason: Vertigo Ondansetron [Zofran Odt] 4 mg PO Q8HR #12 tab.sherlydis
[2021-09-08 12:59] LABS: Hematocrit 39.6 % (30.3-42.9); Hemoglobin 13.2 gm/dl (10.1-14.3); Mean Corpuscular HGB Conc 33 % (30-34); Mean Corpuscular Volume 82 fl (79-97); Platelet Count 172 K/mm3 (140-440); Red Blood Count 4.85 M/mm3 (3.65-5.03); Red Cell Distribution Width 15.1 % (13.2-15.2)
[2021-09-08 13:02] LABS: Bilirubin,Urine NEG (Negative); Blood,Urine MOD (Negative); Color,Urine Yellow (Yellow); Mucus,Urine FEW /HPF; Protein,Urine <15 mg/dL mg/dL (Negative); Urobilinogen,Urine < 2.0 mg/dL (<2.0)
--- NOTE | 2021-09-08 13:12 | XRay Report ---
CHEST 2 VIEWS INDICATION: dizziness. COMPARISON: 08/04/2019 FINDINGS: SUPPORT DEVICES: None. HEART: Within normal limits. LUNGS/PLEURA: No acute air space or interstitial disease. No pneumothorax. ADDITIONAL FINDINGS: None. IMPRESSION: 1. No acute findings. Signer Name: Lonny Cuevas MD Signed: 09/08/2021 1:08 PM Workstation Name: [id number]
[2021-09-08 13:17] LABS: Alanine Aminotransferase 12 units/L (7-56); Albumin 4.5 g/dL (3.9-5); BUN/Creatinine Ratio 16; Blood Urea Nitrogen 16 mg/dL (7-17); Calcium 9.8 mg/dL (8.4-10.2); Hemolysis Index 4
[2021-09-08 13:49] VITALS: BP 133/71
--- NOTE | 2021-09-08 14:27 | Cat Scan Report ---
CT head without contrast HISTORY: dizziness. TECHNIQUE: Axial imaging performed from the skull apex through the skull base without the use of con trast. All CT scans at this location are performed using CT dose reduction for ALARA by means of aut omated exposure control. COMPARISON: CT head from 02/28/2011 FINDINGS: Parenchyma: No acute intracranial hemorrhage or parenchymal abnormality. Ventricles: There is mild diffuse brain atrophy with commensurate ventricular enlargement which is l ikely age appropriate. Soft tissues: Soft tissues including the orbits appear normal. Bones: No acute osseous abnormality. Sinuses: Sinuses and mastoid air cells are clear. IMPRESSION: No acute abnormality. Signer Name: Lonny Cuevas MD Signed: 09/08/2021 2:23 PM Workstation Name: [id number]
--- NOTE | 2021-09-09 16:14 | Electrocardiograph Report ---
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
== END 2021-09-08 15:33 | disposition home or self-care (01) ==
LOC: ED 11:18
DX: R42 Dizziness and giddiness (principal); R53.1 Weakness; R11.0 Nausea; I10 Essential (primary) hypertension; J45.909 Unspecified asthma, uncomplicated; Z90.710 Acquired absence of both cervix and uterus
CPT/HCPCS: 36415; 70450; 71046; 80053; 81001; 84484; 85027; 93005; 96361; 96374; 99284; J2405; J7030; Q0162